=== PATIENT | male | born 1990 | race Caucasian/White ===

== ENCOUNTER 2018-07-01 10:53 | Outpatient (CLI) | payer BC ==
[~2018-07-01 10:53] MED LIST: Gadobenate Dimeglumine 529 MG/1 ML (20ML VIAL) ONE
--- NOTE | 2018-07-01 13:45 | MRI ---
MRI BRAIN WITH AND WITHOUT IV CONTRAST: HISTORY: Persistent daily headaches. FINDINGS: No restricted diffusion is seen. There is no evidence of infarct, hemorrhage, mass, midline shift, o r abnormal extraaxial fluid collections. The ventricular size is normal and the basilar cisterns are patent. No signal abnormalities are seen on the highly sensitive FLAIR images. No blood products a re noted on the gradient echo sequences. No abnormal post contrast enhancement is seen. No tonsilla r herniation is seen. The visualized paranasal sinuses and mastoid air cells are well aerated. IMPRESSION: Normal examination. POS: [facility]
== END 2018-07-01 10:54 | disposition home or self-care (01) ==
LOC: SCSMRI 10:53
PROVIDERS: ATTEND Family Medicine
DX: G44.52 New daily persistent headache (NDPH) (principal)
CPT/HCPCS: 70553; A9577

== ENCOUNTER 2018-09-23 11:21 | Outpatient (CLI) | payer BC ==
--- NOTE | 2018-09-23 11:42 | RAD ---
XR Knee Lt 4 View STANDARD: 09/23/2018 12:00 AM CLINICAL INDICATION: Pain COMPARISON: None. FINDINGS: Fracture:No acute fracture. 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 Incidental findings:None of significance. IMPRESSION: 1. No acute osseous abnormality.
== END 2018-09-23 11:22 | disposition home or self-care (01) ==
LOC: SCSRAD 11:21
PROVIDERS: ATTEND Family Medicine
DX: M25.562 Pain in left knee (principal)